=== PATIENT | female | born 1930 | race Caucasian/White ===

== ENCOUNTER 2016-11-30 22:49 | Emergency (ER) | payer MEDICARE, BC ==
[2016-11-30 23:24] LABS: Urine Bilirubin Negative (NEGATIVE); Urine Ketone Negative (NEGATIVE); Urine Nitrite Negative (NEGATIVE); Urine Protein 15 mg/dL (NEGATIVE); Urine Specific Gravity 1.025 SP.GR. (1.005-1.010); Urine Urobilinogen Normal (NORMAL)
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
[2016-11-30 23:34] LABS: Urine Appearance Clear; Urine Bacteria 2+; Urine Blood 10 /ul (NEGATIVE); Urine Color Yellow; Urine RBC 0-5 /hpf (0-5)
[2016-11-30 23:39] LABS: INR 6.35 INR (0.90-1.10)
[2016-11-30] MEDS ORDERED: NORMAL SALINE 1,000 ML IV PRN (23:44)
[2016-11-30 23:59] LABS: Albumin * 3.4 gm/dl (3.4-5.0); BUN/Creatinine Ratio 10.9 (9.0-21.6); Bilirubin, Total 3.9 mg/dL (0.0-1.1); Ca. Corrected For Albumin 9.2 mg/dL (8.4-10.2); Carbon Dioxide 27.2 mmol/L (24-32.6); Potassium 3.2 mmol/L (3.4-4.6); Total Protein 7.8 gm/dL (6.2-8.2); Troponin I 0.029 ng/ml (0.00-0.10)
[2016-12-01 00:01] LABS: Hemoglobin 8.8 gm/dL (12.5-16.0); Mean Cell Volume 104.4 fl (78-100); Mean Corpuscular Hemoglobin 38.8 pg (27-31); Mean Corpuscular Hgb Conc 37.1 g/dl (32-36); Mean Platelet Volume 9.7 fl (6.0-9.5); Neutrophil % 81.1 % (42-75.0); Platelet Count 253 K/mm3 (150-450); Red Blood Count 2.27 M/mm3 (4.2-5.4); Red Cell Distribution Width 19.7 % (11.5-14.0); White Blood Count 9.9 K/mm3 (4.0-10.5)
[2016-12-01 00:04] LABS: Hematocrit 23.7 % (37.0-47.0)
--- OUTSIDE RECORDS SUMMARY | 2016-12-01 00:19 | XMS REPORT | Continuity of Care Document ---
:1930 Author Organization [facility] ([facility]) Address [address] [place] [address] Phone [phone] Care Team Providers Name Role Phone Wesley Neumann Primary Care Provider [phone] Source Comments This disclosure is being made pursuant to the Care Everywhere program, applicable federal and state laws, and may not contain all informaitonavailable regarding this patient.[facility] ([facility]) Active Allergies and Adverse Reactions Allergen Noted Date Severity Reactions Comments Penicillins 07/18/2015 Unknown Current Medications Not on file Active Problems Problem Noted Date Persistent atrial fibrillation 07/18/2015 Essential hypertension 07/18/2015 Social History Tobacco Use Types Packs/Day Years Used Date Never Smoker Plan of Care Health Maintenance Due Date Last Done Comments Hepatitis B Vaccine (1 of 3 - Primary Series) 1930 Tdap Vaccine 01/01/1943 Lipid Disorder Screening 01/01/1950 Td Vaccine 01/01/1950 Colonoscopy 01/01/1982 Zoster Vaccine 1992 Osteoporosis Screening (DXA Bone Density) 01/01/1997 Pneumococcal Vaccine (1 of 2 - PCV13) 01/01/1997 Influenza Vaccine: Seasonal (#1) 03/10/2016 Results from Last 3 Months Not on file
[2016-12-01] MEDS ORDERED: CIPROFLOXACIN HCL 250 MG TABLET ONE (00:57)
[2016-12-01] MEDS ORDERED: CIPROFLOXACIN HCL 250 MG TABLET PO ONE (00:57)
[2016-12-01 01:23] VITALS: BP 134/48
== END 2016-12-01 01:22 | disposition short-term general hospital (02) ==
LOC: ER 22:49
DX: N30.00 Acute cystitis without hematuria (principal); Z85.828 Personal history of other malignant neoplasm of skin; D64.9 Anemia, unspecified; I10 Essential (primary) hypertension; W07.XXXA Fall from chair, initial encounter; Z91.81 History of falling; Z86.711 Personal history of pulmonary embolism; Z79.01 Long term (current) use of anticoagulants

== ENCOUNTER 2016-12-02 01:09 | Inpatient (IN) | payer MEDICARE, BC ==
--- NOTE | 2016-12-02 01:26 | ERNOTE ---
Dyspnea - General Presenting Symptoms: shortness of breath Time Seen by Provider: 12/02/16 01:23 Source: patient Exam Limitations: no limitations - Immun/Allergies/Home Medications Immunizations: IMMUNIZATION HX Immunizations Up to Date Yes History of Influenza Vaccine Yes Hx Pneumococcal Vaccination Yes Allergies/Adverse Reactions: Allergies barley Allergy (Verified 12/02/16 01:20) Fish Containing Products Allergy (Verified 12/02/16 01:20) honey Allergy (Verified 12/02/16 01:20) Penicillins Allergy (Verified 12/02/16 01:20) Home Medications: HOME MEDICATIONS Acetaminophen [Tylenol] 500 mg PO QAM PRN 07/17/15 [Last Taken Unknown] Amitriptyline HCl [Elavil] 25 mg PO HS 07/17/15 [Last Taken Unknown] Calcium Carbonate/Vitamin D3 [Calcium 600 + D Tablet] 1 each PO DAILY 07/17/15 [ Last Taken Unknown] Folic Acid 1 mg PO DAILY 07/17/15 [Last Taken Unknown] Hydrochlorothiazide [Hydrodiuril] 25 mg PO DAILY 07/17/15 [Last Taken Unknown] Oxybutynin Chloride [Ditropan Xl] 5 mg PO BID 07/17/15 [Last Taken Unknown] Potassium Chloride [Klor-Con 10] 10 meq PO BID 07/17/15 [Last Taken Unknown] Warfarin Sodium [Coumadin] 5 mg PO DAILY 07/17/15 [Last Taken Unknown] Cyanocobalamin [Vitamin B-12] 1,000 mcg PO DAILY 90 Days 07/18/15 [Last Taken Unknown] Ciprofloxacin HCl [Cipro] 500 mg PO BID #14 tab 12/01/16 [Last Taken Unknown] Metoprolol Tartrate 50 mg PO 0900 12/02/16 [Last Taken Unknown] Metoprolol Tartrate [Lopressor] 100 mg PO HS 12/02/16 [Last Taken Unknown] - History of Present Illness Narrative: Pt was seen in this ED yesterday for shortness of breath, and discharged to home with a change of antibiotics. States she continues to have shortness of breath Severity: moderate Treatment BOX TOE STITCHER: paramedics, oxygen Initiating event: Reports: unknown Modifying Factors - (Improves): Reports: oxygen Modifying Factors (Worsens): Reports: activity Prior Treatment: Reports: recently seen, treated by physician, currently on antibiotics Review of Systems - Review of Systems Constitutional: Present: recent illness, fatigue EYE: Present: no symptoms reported ENT: Present: no symptoms reported Respiratory: Present: shortness of breath Cardiology: Absent: chest pain, palpitations Gastrointestinal/Abdominal: Present: abdominal pain - bloated feeling Genitourinary: Present: frequency Musculoskeletal: Present: no symptoms reported Skin: Present: no symptoms reported Neurological: Present: dizziness/light-headedness Endocrine: Present: no symptoms reported Hematologic/Lymphatic: Present: no symptoms reported Psych: Present: no symptoms reported - Patient's Past Medical History Patient History - Medical: Anemia - hemolytic--cold aglutinins, Cataracts, UTI'S Patient History - Cardiac/Respiratory: Hypertension, Pulmonary Embolism Patient History - Cancer: Skin Patient History - Surgical Procedures: Appendectomy, Cholecystectomy, Hysterectomy, T & A Patient History - Other: None - Family History Mother Family History - Medical: , Diabetes Type 2 Family History - Cardiac/Respiratory: CHF, Deep Vein Thrombosis, Hypertension Father Family History - Medical: Family History - Cardiac/Respiratory: CVA/Stroke Brother Family History - Medical: Family History - Cardiac/Respiratory: Atrial Fibrillation - Social History Living Situations: home Abuse History: No History of abuse Psych History: No pertinent hx Smoking Status: Former smoker Have you smoked in the past 12 months: No Do you dip or chew tobacco: No Alcohol Use: none Drug Use: none - Immunizations Immunizations Up to Date: Yes Hx Pneumococcal Vaccination: Yes History of Influenza Vaccine: Yes Physical Exam - Physical Exam General Appearance: Present: wd/wn, alert, no apparent distress Ears, Nose, Throat: Present: normal ENT inspection Neck: Present: normal inspection Respiratory: Present: no respiratory distress, normal breath sounds, chest nontender, lungs clear Cardiovascular/Chest: Present: regular rate, rhythm, no murmur, normal peripheral pulses Gastrointestinal/Abdominal: Present: abnormal bowel sounds - hypoactive Extremity Exam: Present: pedal edema Neurological Exam: Present: alert, oriented, normal mood/affect Skin Exam: Present: normal color, warm/dry Lymphatic Exam: Present: no adenopathy ED Progress - Results and Orders Patient's Lab Results:: I have reviewed the patient's lab results. Results and Orders: Laboratory Tests 12/02/16 12/02/16 12/02/16 01:24 01:24 01:24 WBC 8.1 Hgb 7.9 L* Hct 22.2 L* Plt Count 228 Neutrophils % 77.1 H PT INR (Anticoag Therapy) D-Dimer 0.38 Sodium 130 L Potassium 3.6 Chloride 93 L Carbon Dioxide 27.1 Anion Gap 13.5 BUN 18 Creatinine 1.41 H Est GFR (Non-Af Amer) 38 L BUN/Creatinine Ratio 12.8 Random Glucose 113 H Calcium 8.9 Calcium Adj for Albumin 9.2 Total Bilirubin 4.5 H AST 27 ALT 17 L Alkaline Phosphatase 62 Troponin I 0.040 B-Natriuretic Peptide 2579 H Total Protein 7.2 Albumin 3.2 L 12/02/16 01:54 WBC Hgb Hct Plt Count Neutrophils % PT 42.7 H INR (Anticoag Therapy) 4.11 H* D-Dimer Sodium Potassium Chloride Carbon Dioxide Anion Gap BUN Creatinine Est GFR (Non-Af Amer) BUN/Creatinine Ratio Random Glucose Calcium Calcium Adj for Albumin Total Bilirubin AST ALT Alkaline Phosphatase Troponin I B-Natriuretic Peptide Total Protein Albumin - Vital Signs Patient's Vital Signs:: I have reviewed the patient's vital signs. Vital Signs: Vital Signs 12/02/16 01:14 Temperature 36.7 C Pulse Rate 64 Respiratory 12 Rate Blood Pressure 120/64 O2 Sat by Pulse 91 Oximetry - EKG EKG: RBBB - incomplete EKG read: Interp. by me EKG Comments: Sinus bradycardia with first degree AV block - X-Ray X-Ray #1 X-Ray: chest Interpretation: Interp. by me X-ray Comments: right side pulmonary edema, cardiomegaly. 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
--- OUTSIDE RECORDS SUMMARY | 2016-12-02 01:41 | XMS REPORT | Continuity of Care Document ---
:1930 Author Organization [facility] ([facility]) Address [address] [place] [address] Phone [phone] Care Team Providers Name Role Phone Wesley Neumann Primary Care Provider [phone] Source Comments This disclosure is being made pursuant to the Care Everywhere program, applicable federal and state laws, and may not contain all informaitonavailable regarding this patient.[facility] ([facility]) Active Allergies and Adverse Reactions Allergen Noted [...]
[2016-12-02 01:44] LABS: Mean Cell Volume 102.8 fl (78-100); Mean Corpuscular Hemoglobin 36.6 pg (27-31); Mean Corpuscular Hgb Conc 35.6 g/dl (32-36); Mean Platelet Volume 9.7 fl (6.0-9.5); Neutrophil # 6.2 K/mm3 (1.3-6.0); Neutrophil % 77.1 % (42-75.0); Platelet Count 228 K/mm3 (150-450); Red Blood Count 2.16 M/mm3 (4.2-5.4); Red Cell Distribution Width 18.2 % (11.5-14.0); White Blood Count 8.1 K/mm3 (4.0-10.5)
[2016-12-02 01:48] LABS: Hematocrit 22.2 % (37.0-47.0); Hemoglobin 7.9 gm/dL (12.5-16.0)
[2016-12-02 02:06] LABS: Prothrombin Time (Patient) 42.7 Seconds (9.4-11.4)
[2016-12-02 02:07] LABS: INR 4.11 INR (0.90-1.10)
[2016-12-02 02:14] LABS: Albumin * 3.2 gm/dl (3.4-5.0); Anion Gap 13.5 mmol/L (6.8-13.8); BUN/Creatinine Ratio 12.8 (9.0-21.6); Bilirubin, Total 4.5 mg/dL (0.0-1.1); Ca. Corrected For Albumin 9.2 mg/dL (8.4-10.2); Calcium * 8.9 mg/dL (7.9-10.9); Carbon Dioxide 27.1 mmol/L (24-32.6); Potassium 3.6 mmol/L (3.4-4.6); Total Protein 7.2 gm/dL (6.2-8.2); Troponin I 0.04 ng/ml (0.00-0.10)
[2016-12-02] MEDS ORDERED: FUROSEMIDE 10 MG/ML VIAL ONE ×2 (03:45→13:21)
[2016-12-02] MEDS ORDERED: FUROSEMIDE 10 MG/ML VIAL IV ONE ×3 (03:45→12:05)
--- OUTSIDE RECORDS SUMMARY | 2016-12-02 03:49 | XMS REPORT | Continuity of Care Document ---
:1930 Author Organization [facility] ([facility]) Address [address] [place] [address] Phone [phone] Care Team Providers Name Role Phone Wesley Neumann Primary Care Provider [phone] Source Comments This disclosure is being made pursuant to the Care Everywhere program, applicable federal and state laws, and may not contain all informaitonavailable regarding this patient.[facility] ([facility]) Active Allergies and Adverse Reactions Allergen [...]
--- NOTE | 2016-12-02 04:14 | HP ---
Chief Complaint - Chief Complaint Date of Service: 12/02/16 Time of Service: 04:07 Chief Complaint: " Worsening SOB, Could not fall asleep due to SOB". Source of HPI- Pt; shawanda, pt's daughter, ER provider report. History of Present Illness: Mrs. Guzman is a 86-yr-old [place] pt of Dr. Wesley Neumann with a PMH of: Antithrombin 3 deficiency, A-fib, B12 Deficiency, Cold Agglutinin disease, HTN , Post Herpetic Neuralgia & Pulmonary Embolism. Pt states that she has had SOB since yesterday. She came to the ER to be evaluated due to dizziness and had fallen onto her bottom while getting up. Today, she says, her SOB has gotten progressively worse. She normally assumes a RT laying flat position, but states that tonight, she could not sleep on that position due to extreme SOB. She denies the associated symptoms of fevers, chills coughing & chest pain. Daughter states that she has been getting weaker and they have noticed this since being diagnosed with a UTI 4 days ago. She had been initially started on Bactrim for the UTI, but it was switched to Cipro yesterday by the ERP. During evaluation at the ED tonight, the CXR obtained showed some pulmonary congestion and RT pleural effusion and she also required Oxygen supplementation due to POX of 88% RA. Her BNP was elevated at 2327 in comparison to the level on 11/30 of 1515. Other labwork showed elevated INR of 4.1, was also noted to be Anemic with a hgb of 7.9 and Total bili of 4.5. She will be admitted inpatient for a minimum of 2 midnight due to clinical signs of CHF and RT pleural effusion which will require IV diuretics. - Patient's Past Medical History Patient History - Medical: Anemia - hemolytic--cold aglutinins, Cataracts, UTI'S , Other - Antithrombin 3 deficiency, B12 Deficiency, Post Herpetic Neuralgia Patient History - Cardiac/Respiratory: Atrial Fibrillation, Hypertension, Pulmonary Embolism Patient History - Cancer: Skin Patient History - Surgical Procedures: Appendectomy, Cholecystectomy, Hysterectomy, T & A Patient History - Other: None - Family History Mother Family History - Medical: , Diabetes Type 2 Family History - Cardiac/Respiratory: CHF, Deep Vein Thrombosis, Hypertension Father Family History - Medical: Family History - Cardiac/Respiratory: CVA/Stroke Brother Family History - Medical: Family History - Cardiac/Respiratory: Atrial Fibrillation - Social History Living Situations: home Abuse History: No History of abuse Psych History: No pertinent hx Smoking Status: Former smoker Have you smoked in the past 12 months: No Do you dip or chew tobacco: No Alcohol Use: none Drug Use: none - Immunizations Immunizations Up to Date: Yes Hx Pneumococcal Vaccination: Yes History of Influenza Vaccine: Yes Review Of Systems (GEN) - Review of Systems Generalized/Overall Review: Present: Weakness, Malaise. Absent: Chills, Fever, Diaphoresis EENTM: Present: Mouth Pain, Mouth Swelling - Report mouth swelling after taking Vitamin b 12 sl. Absent: Eye Pain, Blurred Vision, Nose Congestion Respiratory: Present: Cough - occasional non productive, Shortness of Breath, Orthopnea Cardiac: Present: Edema. Absent: Chest Pain, Palpitations, Syncope Abdominal: Absent: Nausea, Vomiting, Hematemesis, Abdominal Pain, Bright blood from rectum Genitourinary: Present: Frequency. Absent: Burning, Itching, Hematuria Musculoskeletal: Absent: Joint Pain, Back Pain, Neck Pain Neurological: Present: Headache, Weakness. Absent: Anxiety, Depressed Skin: Present: Dryness. Absent: Bruising Endocrine: Present: Intolerance to Cold. Absent: Flushing, Increased Thirst Misc: All systems neg except as marked Immunizations: IMMUNIZATION HX Immunizations Up to Date Yes History of Influenza Vaccine Yes Hx Pneumococcal Vaccination Yes Allergies/Adverse Reactions: Allergies Allergy/AdvReac Type Severity Reaction Status Date / Time barley Allergy Verified 12/02/16 01:20 Fish Containing Products Allergy Verified 12/02/16 01:20 honey Allergy Verified 12/02/16 01:20 Penicillins Allergy Verified 12/02/16 01:20 sulfamethoxazole AdvReac Unknown Verified 12/02/16 05:11 [From Bactrim] trimethoprim [From Bactrim] AdvReac Unknown Verified 12/02/16 05:11 Home Medications: HOME MEDICATIONS Acetaminophen [Tylenol] 500 mg PO QAM PRN 07/17/15 [Last Taken Unknown] Amitriptyline HCl [Elavil] 25 mg PO HS 07/17/15 [Last Taken Unknown] Calcium Carbonate/Vitamin D3 [Calcium 600 + D Tablet] 1 each PO DAILY 07/17/15 [ Last Taken Unknown] Folic Acid 1 mg PO DAILY 07/17/15 [Last Taken Unknown] Hydrochlorothiazide [Hydrodiuril] 25 mg PO DAILY 07/17/15 [Last Taken Unknown] Oxybutynin Chloride [Ditropan Xl] 5 mg PO BID 07/17/15 [Last Taken Unknown] Potassium Chloride [Klor-Con 10] 10 meq PO BID 07/17/15 [Last Taken Unknown] Warfarin Sodium [Coumadin] 5 mg PO SUMOWETHFR 07/17/15 [Last Taken Unknown] Cyanocobalamin [Vitamin B-12] 1,000 mcg PO DAILY 90 Days 07/18/15 [Last Taken Unknown] Ciprofloxacin HCl [Cipro] 500 mg PO BID #14 tab 12/01/16 [Last Taken Unknown] Metoprolol Tartrate 50 mg PO 0900 12/02/16 [Last Taken Unknown] Metoprolol Tartrate [Lopressor] 100 mg PO HS 12/02/16 [Last Taken Unknown] Warfarin Sodium [Jantoven] 2.5 mg PO TUSA 12/02/16 [Last Taken Unknown] Exam - Exam Vital Signs: Vital Signs - Last Taken Temp 37.8 C H 12/02/16 02:58 Pulse 60 12/02/16 03:49 Resp 20 12/02/16 03:27 BP 110/65 12/02/16 03:49 Pulse Ox 95 12/02/16 03:27 Constitutional: Present: Alert, Oriented x3, No distress ENT Exam: Present: hearing grossly normal, dry mucous membranes. Absent: nasal congestion, nasal drainage Eye Exam: bilateral eye: normal inspection, PERRL Neck: Present: full range of motion, supple, normal inspection Back Exam: Present: normal inspection Respiratory: Present: no accessory muscle use, rales - RT base, No wheezing Cardiovascular/Chest: Present: normal peripheral pulses, regular rate, rhythm, no chest tenderness, no murmur Abdomen: Present: Normal bowel sounds, soft, nontender, obese /Rectal: Present: Exam deferred Extremity: Present: non-tender, normal inspection, no pedal edema Skin Exam: Present: jaundice - slight jaundice Lymphatic: Present: no adenopathy Neurologic: Present: no motor/sensory deficits, alert, oriented x 3, dizzy/light -headedness Appearance: Present: appropriate appearance, appropriate insight Eye contact: Present: cooperative, good eye contact Thoughts: Present: normal thought pattern, no apparent hallucination Diagnostic Studies: Abnormal Lab Results 12/02/16 12/02/16 12/02/16 Range/Units 01:24 01:24 01:54 RBC 2.16 L (4.2-5.4) M/mm3 Hgb 7.9 L* (12.5-16.0) gm/dL Hct 22.2 L* (37.0-47.0) % MCV 102.8 H (78-100) fl MCH 36.6 H (27-31) pg RDW 18.2 H (11.5-14.0) % MPV 9.7 H (6.0-9.5) fl Immature Gran % (Auto) 0.60 H (0.001-0.429) % Immature Gran # (Auto) 0.05 H (0.000-0.0310) K/mm3 Neutrophils % 77.1 H (42-75.0) % Lymphocytes % 11.7 L (20-51) % Monocytes % 9.7 H (0.0-9) % Neutrophils # 6.2 H (1.3-6.0) K/mm3 Lymphocytes # 0.9 L (1.5-3.5) k/mm3 PT 42.7 H (9.4-11.4) Seconds INR (Anticoag Therapy) 4.11 H* (0.90-1.10) INR Sodium 130 L (132-142) mmol/L Chloride 93 L (97-106) mmol/L Creatinine 1.41 H (0.4-1.4) mg/dL Est GFR (Non-Af Amer) 38 L (60-130) mL/min Random Glucose 113 H (70-110) mg/dL Total Bilirubin 4.5 H (0.0-1.1) mg/dL ALT 17 L (19-67) U/L B-Natriuretic Peptide 2579 H (5-550) pg/mL Albumin 3.2 L (3.4-5.0) gm/dl Laboratory Results WBC 8.1 K/mm3 (4.0-10.5) 12/02/16 01:24 RBC 2.16 M/mm3 (4.2-5.4) L 12/02/16 01:24 Hgb 7.9 gm/dL (12.5-16.0) L* 12/02/16 01:24 Hct 22.2 % (37.0-47.0) L* 12/02/16 01:24 MCV 102.8 fl (78-100) H 12/02/16 01:24 MCH 36.6 pg (27-31) H 12/02/16 01:24 MCHC 35.6 g/dl (32-36) 12/02/16 01:24 RDW 18.2 % (11.5-14.0) H 12/02/16 01:24 Plt Count 228 K/mm3 (150-450) 12/02/16 01:24 MPV 9.7 fl (6.0-9.5) H 12/02/16 01:24 Immature Gran % (Auto) 0.60 % (0.001-0.429) H 12/02/16 01:24 Immature Gran # (Auto) 0.05 K/mm3 (0.000-0.0310) H 12/02/16 01:24 Neutrophils % 77.1 % (42-75.0) H 12/02/16 01:24 Lymphocytes % 11.7 % (20-51) L 12/02/16 01:24 Monocytes % 9.7 % (0.0-9) H 12/02/16 01:24 Eosinophils % 0.5 % (0.0-3.0) 12/02/16 01:24 Basophils % 0.4 % (0.0-1.0) 12/02/16 01:24 Nucleated RBC % 0.0 k/mm3 (0-1) 12/02/16 01:24 Neutrophils # 6.2 K/mm3 (1.3-6.0) H 12/02/16 01:24 Lymphocytes # 0.9 k/mm3 (1.5-3.5) L 12/02/16 01:24 Monocytes # 0.8 k/mm3 (0.0-1.0) 12/02/16 01:24 Eosinophils # 0.0 k/mm3 (0.0-0.7) 12/02/16 01:24 Absolute Basophils 0.0 k/mm3 (0.0-0.1) 12/02/16 01:24 PT 42.7 Seconds (9.4-11.4) H 12/02/16 01:54 INR (Anticoag Therapy) 4.11 INR (0.90-1.10) H* 12/02/16 01:54 D-Dimer 0.38 mg/L (0.19-0.49) 12/02/16 01:24 Sodium 130 mmol/L (132-142) L 12/02/16 01:24 Plasma Sodium 130 mmol/L (130-142) 12/02/16 01:24 Potassium 3.6 mmol/L (3.4-4.6) 12/02/16 01:24 Chloride 93 mmol/L (97-106) L 12/02/16 01:24 Carbon Dioxide 27.1 mmol/L (24-32.6) 12/02/16 01:24 Anion Gap 13.5 mmol/L (6.8-13.8) 12/02/16 01:24 BUN 18 mg/dL (3-23) 12/02/16 01:24 Creatinine 1.41 mg/dL (0.4-1.4) H 12/02/16 01:24 Est GFR (Non-Af Amer) 38 mL/min (60-130) L 12/02/16 01:24 BUN/Creatinine Ratio 12.8 (9.0-21.6) 12/02/16 01:24 Random Glucose 113 mg/dL (70-110) H 12/02/16 01:24 Calcium 8.9 mg/dL (7.9-10.9) 12/02/16 01:24 Calcium Adj for Albumin 9.2 mg/dL (8.4-10.2) 12/02/16 01:24 Total Bilirubin 4.5 mg/dL (0.0-1.1) H 12/02/16 01:24 AST 27 U/L (0-48) 12/02/16 01:24 ALT 17 U/L (19-67) L 12/02/16 01:24 Alkaline Phosphatase 62 U/L (50-170) 12/02/16 01:24 Troponin I 0.040 ng/ml (0.00-0.10) 12/02/16 01:24 B-Natriuretic Peptide 2579 pg/mL (5-550) H 12/02/16 01:24 Total Protein 7.2 gm/dL (6.2-8.2) 12/02/16 01:24 Albumin 3.2 gm/dl (3.4-5.0) L 12/02/16 01:24 Assessment/Plan - Assessment/Plan (1) Pleural effusion Assessment: The CXR obtained on 11/30 showed RT sided pleural effusion. Pt reported being Dyspneic with activity and at rest. The etiology is likely Heart Failure due to hypoxia and pulmonary edema/congestion on CXR and elevated BNP. Bacterial Pneumonia not the likely cause- no cough, fever, chills or infiltrates. Pulmonary Embolism also not likely cause- no pleuritic chest pain, no unilateral edema & D-dimer was negative. Will diurese with IV Lasix, if no improvement, may consider therapeutic & diagnostic thoracentesis. Problem: Acute (2) Congestive heart failure (CHF) Assessment: Pt is developing early signs of HF: Pt reported Orthopnea, noted to have pulmonary congestion on CXR, Non Pitting BLE Edema. May need an Echocardiogram to determine ventricular size and any mechanical complications. Will diurese with IV lasix. Will determine daily doses based on Fluid Volume status. Monitor daily wts, strict I/Os, Zee for accurate I/Os. Problem: Suspected Qualifiers: Congestive heart failure type: systolic (3) Anemia Assessment: Hgb noted to be 7.9 . 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 She mentioned about going to a grocery store recently and being exposed to cold. Management usually involves treatment of underlying condition causing the hemolysis. Will make accommodations to make sure she stays warm. It is recommended that Blood transfusions should be used judiciously as they may aggravate the hemolysis. Supportive measures include interventions to maintain adequate renal and cardiovascular function. Incase of blood transfusion, she will need a blood warmer. Continue with folic acid- helps with chronic hemolysis. 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 From the [facility] records, she recently had a follow-up on 11/27 and her CBC was stable and she did not want aggressive work-up for cold agglutinin hemolytic anemia. She agreed with her PCP on supportive cares which involves avoidance of cold exposure- which mean pt must dress warm even in summer months. Problem: Acute (5) Hyperbilirubinemia Assessment: Total bili of 4.5. Is secondary to Hemolysis Anemia. 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 INR eleveted. 11/30---->6.9, 12/02---->4.1 Will hold coumadin. Will have pharmacy manage the dose. Problem: Chronic (7) HTN (hypertension) Problem: Chronic Qualifiers: Hypertension type: essential hypertension Qualified Code(s): I10 - Essential (primary) hypertension (8) Post herpetic neuralgia Problem: Chronic (9) A-fib Assessment: Place on telemetry monitoring. Problem: Acute
[2016-12-02] MEDS ORDERED: METOLAZONE 5 MG TABLET PO ONE (05:10)
[2016-12-02 06:25] LABS: Hematocrit 21.6 % (37.0-47.0); Hemoglobin 7.8 gm/dL (12.5-16.0)
[2016-12-02] MEDS ORDERED: ACETAMINOPHEN 500 MG TABLET PO PRN (06:57)
--- NOTE | 2016-12-02 08:56 | PN ---
Subjective - Date and Time Seen Date: 12/02/16 Time: 08:53 Subjective Narrative: Breathing better; no chest pain Objective - Review of Systems Generalized/Overall Review: Reports: No Symptoms Reported EENTM: Reports: No Symptoms Reported Respiratory: Reports: No Symptoms Reported Cardiac: Reports: No Symptoms Reported Abdominal: Reports: No Symptoms Reported Musculoskeletal Complaints: Reports: No Symptoms Reported - Vitals Vitals: Last Vital Signs Temp 36.8 C 12/02/16 08:09 Pulse 58 L 12/02/16 08:09 Resp 20 12/02/16 08:09 BP 131/51 12/02/16 08:09 Pulse Ox 99 12/02/16 08:09 - Abnormal Lab Findings Abnormal Lab Findings: Abnormal Lab Results 12/02/16 12/02/16 Range/Units 06:00 06:24 Hgb 7.8 L* (12.5-16.0) gm/dL Hct 21.6 L* (37.0-47.0) % Direct Bilirubin 0.5 H (0.0-0.3) mg/dL - Exam Constitutional: Present: Alert, Oriented x3 ENT Exam: Present: normal ENT inspection Respiratory: Present: crackles Cardiovascular/Chest: Present: irregularly irregular Abdomen: Present: soft, nontender Extremity: Present: lower extremity edema Cauti Physician Documentation - Urinary Catheter Management Urethral (Zee) Date of Insertion: 12/02/16 Time of Insertion: 05:30 Assessment/Plan - Problems/Diagnosis (1) CHF (congestive heart failure) Problem: Acute Qualifiers: Congestive heart failure type: systolic Congestive heart failure chronicity : acute Qualified Code(s): I50.21 - Acute systolic (congestive) heart failure (2) Cold agglutinin disease Problem: Acute (3) Anemia Problem: Chronic Qualifiers: 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
[2016-12-02] MEDS ORDERED: HYDROCHLOROTHIAZIDE 25 MG TABLET PO SCH (09:00)
[2016-12-02] MEDS ORDERED: METOPROLOL TARTRATE 50 MG TABLET PO SCH (09:00)
[2016-12-02] MEDS: OXYBUTYNIN CHLORIDE 5 MG TABLET PO SCH ×2 (11:18→21:53)
[2016-12-02] MEDS: CIPROFLOXACIN HCL 500 MG TABLET PO SCH ×2 (11:18→21:53)
[2016-12-02] MEDS: POTASSIUM CHLORIDE 10 MEQ TABLET.SA PO SCH ×2 (11:19→21:53)
[2016-12-02] MEDS: CALCIUM CARBONATE 500 MG TAB.CHEW PO SCH (11:19)
[2016-12-02] MEDS: FOLIC ACID 1 MG TABLET PO SCH (11:19)
[2016-12-02] MEDS: LISINOPRIL 10 MG TABLET PO SCH (11:19)
[2016-12-02] MEDS: CYANOCOBALAMIN 1,000 MCG TABLET PO SCH (11:20)
[2016-12-02] MEDS: METOPROLOL SUCCINATE 100 MG TABLET.SA PO SCH (11:20)
[2016-12-02 16:00] LABS: Hematocrit 24.3 % (37.0-47.0); Hemoglobin 8.4 gm/dL (12.5-16.0); Mean Cell Volume 96.8 fl (78-100); Mean Corpuscular Hemoglobin 33.5 pg (27-31); Mean Corpuscular Hgb Conc 34.6 g/dl (32-36); Mean Platelet Volume 9.5 fl (6.0-9.5); Platelet Count 275 K/mm3 (150-450); Red Blood Count 2.51 M/mm3 (4.2-5.4); Red Cell Distribution Width 14.6 % (11.5-14.0); White Blood Count 8.5 K/mm3 (4.0-10.5)
[2016-12-02 16:05] LABS: Neutrophil # 6.4 K/mm3 (1.3-6.0); Neutrophil % 74.8 % (42-75.0)
[2016-12-02] MEDS ORDERED: CALCIUM CARBONATE 500 MG TAB.CHEW PO ONE (16:19)
[2016-12-02] MEDS: ONDANSETRON HCL/PF 2 MG/ML VIAL IV PRN ×2 (16:54→21:09)
[2016-12-02] MEDS ORDERED: MAG HYDROX/ALUMINUM HYD/SIMETH 148 ML BTL PO PRN (19:14)
[2016-12-02] MEDS ORDERED: MAG HYDROX/ALUMINUM HYD/SIMETH 30 ML UDC PO PRN (20:03)
[2016-12-02] MEDS ORDERED: METOPROLOL TARTRATE 100 MG TABLET PO SCH (21:00)
[2016-12-02] MEDS: AMITRIPTYLINE HCL 25 MG TABLET PO SCH (21:53)
[2016-12-02] MEDS ORDERED: PROCHLORPERAZINE EDISYLATE 5 MG/ML VIAL IV ONE (23:28)
[2016-12-03 05:57] LABS: Prothrombin Time (Patient) 19.2 Seconds (9.4-11.4)
[2016-12-03 05:58] LABS: INR 1.85 INR (0.90-1.10)
[2016-12-03 06:08] LABS: Albumin * 2.6 gm/dl (3.4-5.0); Anion Gap 9.5 mmol/L (6.8-13.8); BUN/Creatinine Ratio 12.2 (9.0-21.6); Bilirubin, Total 3.7 mg/dL (0.0-1.1); Ca. Corrected For Albumin 9.2 mg/dL (8.4-10.2); Calcium * 8.4 mg/dL (7.9-10.9); Carbon Dioxide 32.9 mmol/L (24-32.6); Total Protein 6.4 gm/dL (6.2-8.2)
[2016-12-03 06:10] LABS: Mean Cell Volume 100.9 fl (78-100); Mean Corpuscular Hgb Conc 34.6 g/dl (32-36); Mean Platelet Volume 9.6 fl (6.0-9.5); Neutrophil # 7.1 K/mm3 (1.3-6.0); Platelet Count 298 K/mm3 (150-450); Red Blood Count 2.26 M/mm3 (4.2-5.4); Red Cell Distribution Width 17.3 % (11.5-14.0); White Blood Count 8.7 K/mm3 (4.0-10.5)
[2016-12-03 06:12] LABS: Hemoglobin 7.9 gm/dL (12.5-16.0)
[2016-12-03 06:13] LABS: Hematocrit 22.8 % (37.0-47.0)
[2016-12-03 06:20] LABS: Potassium 2.4 mmol/L (3.4-4.6)
[2016-12-03] MEDS ORDERED: POTASSIUM CHLORIDE 20 MEQ TABLET.SA PO ONE (06:20)
[2016-12-03] MEDS: PANTOPRAZOLE SODIUM 40 MG TABLET.EC PO SCH (07:58)
--- NOTE | 2016-12-03 08:54 | PN ---
Subjective - Date and Time Seen Date: 12/03/16 Time: 08:49 Subjective Narrative: She is breathing better; she was nauseous yesterday and complained of unable to sleep last night Objective - Review of Systems Generalized/Overall Review: Reports: No Symptoms Reported EENTM: Reports: No Symptoms Reported Respiratory: Reports: No Symptoms Reported Cardiac: Reports: No Symptoms Reported Abdominal: Reports: No Symptoms Reported Genitourinary Symptoms: Reports: No Symptoms Reported Musculoskeletal Complaints: Reports: No Symptoms Reported Neurological: Reports: No Symptoms Reported Skin: Reports: No Symptoms Reported - Vitals Vitals: Last Vital Signs Temp 37.0 C 12/03/16 07:00 Pulse 56 L 12/03/16 07:00 Resp 18 12/03/16 07:00 BP 110/38 12/03/16 07:00 Pulse Ox 93 12/03/16 07:00 - Abnormal Lab Findings Abnormal Lab Findings: Abnormal Lab Results 12/02/16 12/02/16 12/03/16 Range/Units 08:48 16:00 05:37 RBC 2.51 L 2.26 L (4.2-5.4) M/mm3 Hgb 8.4 L 7.9 L* (12.5-16.0) gm/dL Hct 24.3 L 22.8 L* (37.0-47.0) % MCV 100.9 H (78-100) fl MCH 33.5 H 35.0 H (27-31) pg RDW 14.6 H 17.3 H (11.5-14.0) % MPV 9.6 H (6.0-9.5) fl Immature Gran % (Auto) 0.90 H 0.90 H (0.001-0.429) % Immature Gran # (Auto) 0.08 H 0.08 H (0.000-0.0310) K/mm3 Neutrophils % 81.0 H (42-75.0) % Lymphocytes % 12.7 L 8.6 L (20-51) % Monocytes % 11.0 H 9.4 H (0.0-9) % Neutrophils # 6.4 H 7.1 H (1.3-6.0) K/mm3 Lymphocytes # 1.1 L 0.8 L (1.5-3.5) k/mm3 Percent Retic 5.7 H (0.4-1.8) % Immature Retic Fraction 30.2 H (3.0-15.9) % PT (9.4-11.4) Seconds INR (Anticoag Therapy) (0.90-1.10) INR Sodium (132-142) mmol/L Potassium (3.4-4.6) mmol/L Chloride (97-106) mmol/L Carbon Dioxide (24-32.6) mmol/L Creatinine (0.4-1.4) mg/dL Est GFR (Non-Af Amer) (60-130) mL/min Random Glucose (70-110) mg/dL Total Bilirubin (0.0-1.1) mg/dL ALT (19-67) U/L B-Natriuretic Peptide (5-550) pg/mL Albumin (3.4-5.0) gm/dl 12/03/16 12/03/16 Range/Units 05:37 05:37 RBC (4.2-5.4) M/mm3 Hgb (12.5-16.0) gm/dL Hct (37.0-47.0) % MCV (78-100) fl MCH (27-31) pg RDW (11.5-14.0) % MPV (6.0-9.5) fl Immature Gran % (Auto) (0.001-0.429) % Immature Gran # (Auto) (0.000-0.0310) K/mm3 Neutrophils % (42-75.0) % Lymphocytes % (20-51) % Monocytes % (0.0-9) % Neutrophils # (1.3-6.0) K/mm3 Lymphocytes # (1.5-3.5) k/mm3 Percent Retic (0.4-1.8) % Immature Retic Fraction (3.0-15.9) % PT 19.2 H (9.4-11.4) Seconds INR (Anticoag Therapy) 1.85 H (0.90-1.10) INR Sodium 129 L (132-142) mmol/L Potassium 2.4 L* D (3.4-4.6) mmol/L Chloride 89 L (97-106) mmol/L Carbon Dioxide 32.9 H (24-32.6) mmol/L Creatinine 1.72 H (0.4-1.4) mg/dL Est GFR (Non-Af Amer) 30 L D (60-130) mL/min Random Glucose 132 H (70-110) mg/dL Total Bilirubin 3.7 H (0.0-1.1) mg/dL ALT 16 L (19-67) U/L B-Natriuretic Peptide 2702 H (5-550) pg/mL Albumin 2.6 L (3.4-5.0) gm/dl - Exam Constitutional: Present: Alert, Oriented x3, Cooperative, No distress ENT Exam: Present: normal ENT inspection Respiratory: Present: no respiratory distress, crackles, No wheezing Cardiovascular/Chest: Present: bradycardia, irregularly irregular Abdomen: Present: soft, nontender Extremity: Present: no pedal edema Skin Exam: Present: normal color, jaundice Appearance: Present: appropriate appearance Cauti Physician Documentation - Urinary Catheter Management Urethral (Zee) Date of Insertion: 12/02/16 Time of Insertion: 05:30 Assessment/Plan - Problems/Diagnosis (1) CHF (congestive heart failure) Problem: Acute Qualifiers: Congestive heart failure type: systolic Congestive heart failure chronicity : acute Qualified Code(s): I50.21 - Acute systolic (congestive) heart failure (2) Cold agglutinin disease Problem: Acute (3) Anemia Problem: Chronic Qualifiers: 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
[2016-12-03] MEDS: CIPROFLOXACIN HCL 500 MG TABLET PO SCH ×2 (09:22→20:09)
[2016-12-03] MEDS: OXYBUTYNIN CHLORIDE 5 MG TABLET PO SCH ×2 (09:22→20:09)
[2016-12-03] MEDS: SPIRONOLACTONE 25 MG TABLET PO SCH (09:22)
[2016-12-03] MEDS: METOPROLOL SUCCINATE 100 MG TABLET.SA PO SCH (09:23)
[2016-12-03] MEDS: POTASSIUM CHLORIDE 20 MEQ TABLET.SA PO SCH ×2 (09:23→17:52)
[2016-12-03] MEDS: CYANOCOBALAMIN 1,000 MCG TABLET PO SCH (09:23)
[2016-12-03] MEDS: FOLIC ACID 1 MG TABLET PO SCH (09:23)
[2016-12-03] MEDS: LISINOPRIL 10 MG TABLET PO SCH (09:24)
[2016-12-03] MEDS: CALCIUM CARBONATE 500 MG TAB.CHEW PO SCH (09:24)
--- NOTE | 2016-12-03 15:38 | ECHO ---
This report is available in the EMR
[2016-12-03] MEDS ORDERED: WARFARIN SODIUM 5 MG TABLET PO SCH (17:00)
[2016-12-03] MEDS: AMITRIPTYLINE HCL 25 MG TABLET PO SCH (20:09)
[2016-12-04 06:15] LABS: Hemoglobin 8.5 gm/dL (12.5-16.0); Mean Cell Volume 104.3 fl (78-100); Mean Corpuscular Hemoglobin 40.3 pg (27-31); Mean Corpuscular Hgb Conc 38.6 g/dl (32-36); Mean Platelet Volume 9.1 fl (6.0-9.5); Neutrophil # 3.6 K/mm3 (1.3-6.0); Neutrophil % 57.3 % (42-75.0); Platelet Count 312 K/mm3 (150-450); Red Blood Count 2.11 M/mm3 (4.2-5.4); White Blood Count 6.2 K/mm3 (4.0-10.5)
[2016-12-04 06:18] VITALS: BP 111/41
[2016-12-04 06:30] LABS: Prothrombin Time (Patient) 20.6 Seconds (9.4-11.4)
[2016-12-04 06:31] LABS: INR 1.98 INR (0.90-1.10)
[2016-12-04 06:37] LABS: Albumin * 2.6 gm/dl (3.4-5.0); Anion Gap 8.5 mmol/L (6.8-13.8); BUN/Creatinine Ratio 13.3 (9.0-21.6); Bilirubin, Total 3.1 mg/dL (0.0-1.1); Calcium * 8.2 mg/dL (7.9-10.9); Potassium 3.5 mmol/L (3.4-4.6); Total Protein 6.2 gm/dL (6.2-8.2)
[2016-12-04] MEDS: PANTOPRAZOLE SODIUM 40 MG TABLET.EC PO SCH (06:58)
[2016-12-04] MEDS: CIPROFLOXACIN HCL 500 MG TABLET PO SCH (08:43)
[2016-12-04] MEDS: POTASSIUM CHLORIDE 20 MEQ TABLET.SA PO SCH (08:43)
[2016-12-04] MEDS: CALCIUM CARBONATE 500 MG TAB.CHEW PO SCH (08:43)
[2016-12-04] MEDS: METOPROLOL SUCCINATE 100 MG TABLET.SA PO SCH (08:43)
[2016-12-04] MEDS: OXYBUTYNIN CHLORIDE 5 MG TABLET PO SCH (08:43)
[2016-12-04] MEDS: CYANOCOBALAMIN 1,000 MCG TABLET PO SCH (08:43)
[2016-12-04] MEDS: LISINOPRIL 10 MG TABLET PO SCH (08:45)
[2016-12-04] MEDS: SPIRONOLACTONE 25 MG TABLET PO SCH (08:45)
[2016-12-04] MEDS: FOLIC ACID 1 MG TABLET PO SCH (08:45)
--- NOTE | 2016-12-04 08:51 | DS ---
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 IV Lasix diuresis well and the breathing improved. Echocardiogram showed significant pulmonary hypertension so cardiology consultation was obtained from Dr. Perea. This morning she is feeling and breathing better so she will be discharged. Follow-up with al in 138 and she will be referred to Dr. Tejeda in regarding her pulmonary hypertension Procedures Performed: none Discharge Disposition: Home self care Disposition: Home self-care Condition: Fair Discharge Diet: General/regular food Referrals: Wesley Neumann MD [Primary Care Provider] - Additional Patient Instructions (free text): TCM appt. please. Follow up with Dr. Neumann in 1 week CMP pro-time BNP and chest x-ray in [address] Tejeda Prescriptions (Any new or edited meds): Lisinopril [Zestril] 10 mg PO DAILY #30 tablet Complete Home Medications List: Complete Home Medication List: Acetaminophen [Tylenol] 500 mg PO QAM PRN 07/17/15 Amitriptyline HCl [Elavil] 25 mg PO HS 07/17/15 Calcium Carbonate/Vitamin D3 [Calcium 600 + D Tablet] 1 each PO DAILY 07/17/15 Folic Acid 1 mg PO DAILY 07/17/15 Oxybutynin Chloride [Ditropan Xl] 5 mg PO BID 07/17/15 Potassium Chloride [Klor-Con 10] 10 meq PO BID 07/17/15 Warfarin Sodium [Coumadin] 5 mg PO SUMOWETHFR 07/17/15 Cyanocobalamin [Vitamin B-12] 1,000 mcg PO DAILY 90 Days 07/18/15 Metoprolol Tartrate [Lopressor] 100 mg PO HS 12/02/16 Warfarin Sodium [Jantoven] 2.5 mg PO TUSA 12/02/16 Lisinopril [Zestril] 10 mg PO DAILY #30 tablet 12/04/16
[2016-12-06] MEDS ORDERED: WARFARIN SODIUM 2.5 MG TABLET PO SCH (17:00)
== END 2016-12-04 16:55 | disposition home or self-care (01) | DRG 292 ==
LOC: ER 01:09 → MS 03:45
PROVIDERS: ADMIT Nurse Practitioner; ATTEND Internal Medicine
PROC: B246ZZZ Ultrasonography of Right and Left Heart (ICD-10-PCS; principal; 2016-12-02)
DX: I50.21 Acute systolic (congestive) heart failure (principal); D59.1 Other autoimmune hemolytic anemias; E87.1 Hypo-osmolality and hyponatremia; I10 Essential (primary) hypertension; I48.2 Chronic atrial fibrillation; I27.2 Other secondary pulmonary hypertension; T50.1X5A Adverse effect of loop [high-ceiling] diuretics, initial encounter; Y92.239 Unspecified place in hospital as the place of occurrence of the external cause; E87.6 Hypokalemia; Z85.828 Personal history of other malignant neoplasm of skin; Z79.01 Long term (current) use of anticoagulants; Z86.711 Personal history of pulmonary embolism; Z87.891 Personal history of nicotine dependence